=== PATIENT | female | born 1960 | race Caucasian/White ===

== ENCOUNTER 2024-03-10 14:03 | Outpatient (AMB) | payer MEDICARE, MEDICAID, SELFPAY ==
--- NOTE | 2024-03-10 14:14 | A.OFFPC_ITS ---
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: No Allergies latex Allergy (Severe, Verified 03/10/24 14:16) Anaphylaxis cefadroxil [From Duricef] Allergy (Unknown, Verified 03/10/24 14:15) Rash Cephalosporins Allergy (Unknown, Verified 03/10/24 14:16) Unknown Penicillins Allergy (Unknown, Verified 03/10/24 14:16) Rash Medication List - Last Reconciled 03/10/24 by Sury Gallego MD cholecalciferol (vitamin D3) 25 mcg PO DAILY clonidine HCl mg PO fluoxetine 20 mg PO DAILY fluticasone propionate 50 mcg/actuation sprays intranasal ipratropium bromide intranasal lisinopril mg PO morphine 15 mg PO QID PRN pantoprazole 40 mg PO DAILY prednisone mg PO prednisone mg PO rosuvastatin 5 mg PO DAILY valacyclovir 1,000 mg PO BID vit B davs-taevf-amrilky-inosi 400 mcg-20 mg- 50 mg (Super B-50 Complex) caps PO Tobacco use date assessed: 03/10/24 Dental Screening Dental Screen Date: 03/10/24 Did you have a dental visit in the last 12 months?: Yes Did you have a dental problem in the last 6 months where you did not have access to dental care?: No Was dental information given to patient?: Patient has dentist HPI HPI Comments History of Present Illness Details The patient is a 63 year old female with a past medical history of lupus, arthritis, neck pain, hypertension, hyperlipidemia presenting for follow up Chronic pain-SLE, OA, h/o scolioisis. On chronic morphine for pain management, valium as needed. Previously on plaquenil-intolerant of SE. Saw rheumatology Was tapering down prednisone in November. Depression/anxiety-on prozac 10mg. history of IBS. continues loperamide. CV-on lisionpril, crestor. No chest pain or shortness of breath Colonoscopy 06/23/2019-Dr Arriaza-10 year repeat recommended Mammo 12/02/2022 s/p hysterectomy [facility] Medical History (Updated 03/14/24 @ 11:35 by Sury Gallego MD) Cataract Carpal tunnel syndrome on right Headache Depression Anxiety IBS (irritable bowel syndrome) Hypercholesteremia Sinusitis Asthma Surgical History (Updated 03/10/24 @ 16:51 by Brianne Toro CMA) History of tonsillectomy H/O tubal ligation History of hysterectomy Family History (Updated 03/10/24 @ 16:50 by Brianne Toro CMA) Mother HTN (hypertension) Hypercholesteremia Diabetes Clogged artery (heart) Breast cancer Father Hypercholesteremia Diabetes Clogged artery (heart) Prostate cancer Maternal Grandmother Diabetes Paternal Grandfather Lung cancer Stomach cancer Brother Clogged artery (heart) Social History Housing: House Patient Tobacco Use Status: Never used Tobacco e-Cigarette/Vaping Use: Never Used Second Hand Smoke Exposure: No service: No Current occupational status: employed and retired Cognitive needs: No Hearing needs: No Vision needs: No Questionnaire PHQ-9 Over the last 2 weeks, how often have you been bothered by any of the following problems? 1. Little interest or pleasure in doing things: not at all 2. Feeling down, depressed, or hopeless: not at all 3. Trouble falling or staying asleep, or sleeping too much: more than half the days 4. Feeling tired or having little energy: several days 5. Poor appetite or overeating: not at all 6. Feeling bad about yourself - or that you are a failure or have let yourself or your family down: not at all 7. Trouble concentrating on things, such as reading the newspaper or watching television: not at all 8. Moving or speaking so slowly that other people could have noticed. Or the opposite - being so fidgety or restless that you have been moving around a lot more than usual: not at all 9. Thoughts that you would be better off or of hurting yourself in some way: not at all Total score: 3 Depression Screening Interpretation: Positive Depression Screening Follow-up: Declines treatment Depression Screening Done: Yes 54423 - PHQ-9 Billing: Yes Source: Developed by Drs. Noé Freeman, Ave Carson, Huang Leyva and colleagues, with an educational yin from [employer] ([place] Thrive Questionnaire Date Thrive assessed: 03/10/24 I am a: Patient What is your living situation today?: I have a steady place to live Within the past 12 months, did the food you bought not last and you didn't have the money to get more?: Never true Within the past 12 months, did you worry whether your food would run out before you got money to buy more?: Never true Do you have trouble paying for medicines?: No Do you have trouble getting transportation to medical appointments?: No Do you have trouble paying your heating and electricity bill?: No Do you have trouble taking care of your child, family member or friend?: No Do you have trouble with day-to-day activities such as bathing, preparing meals, shopping, managing finances, etc.?: No Are you currently unemployed and looking for a job?: No Are you interested in more education?: No Please select the resources that you would like help with: None Currently or been in a relationship where the following occur: no concerns reported THRIVE Score: 0 AUDIT C Alcohol Use Questionnaire (AUDIT-C) 1. How often do you have a drink containing alcohol?: Never 3. How often do you have six or more drinks on one occasion?: Never Total Score: 0 TORRIE-7 AMB Questionnaire TORRIE-7 Date TORRIE - 7 assessed: 03/10/24 Feeling nervous, anxious, or on edge: 0 = Not at all Not being able to stop or control worryin = Not at all Worrying too much about different things: 0 = Not at all Trouble relaxin = Not at all Being so restless that it is hard to sit still: 0 = Not at all Becoming easily annoyed or irritable: 1 = Several days Feeling afraid as if something awful might happen: 0 = Not at all Total TORRIE-7 score (0-4 normal; 5-9 mild; 10-14 moderate; 15-21 severe): 1 Source: Developed by Drs. Noé Freeman, Ave Carson, Huang Leyva and colleagues, with an educational yin from [employer] ([place] TORRIE-7 Assessment Billing TORRIE-7 Assessment Tool: TORRIE-7 Assessment 54286 ACT Questionnaire In the past 4 weeks, how much of the time did your asthma keep you from getting as much done at work, school or at home?: Some of the time During the past 4 weeks, how often have you had shortness of breath?: 3-6 times a week During the past 4 weeks, how often did your asthma symptoms wake you up at night or earlier than usual in the morning?: 2-3 nights a week During the past 4 weeks, how often have you had to use your rescue inhaler or nebulizer medication?: 2-3 times a week How would you rate your asthma control during the past 4 weeks?: Somewhat controlled ACT Interpretation: Positive Score: 14 Review of Systems Const Details: ROS CONSTITUTIONAL: Denies weight loss, fever and chills. HEENT: Denies changes in vision and hearing. RESPIRATORY: see HPI CV: Denies palpitations and CP GI: Denies abdominal pain, nausea, vomiting and diarrhea. : Denies dysuria and urinary frequency. MSK: Denies new myalgia and joint pain. SKIN: Denies rash and pruritus. NEUROLOGICAL: Denies headache PSYCHIATRIC: Denies recent changes in mood. Physical exam (Primary Care) Vital Signs: Last Vital Signs Temp 98.1 F 03/10/24 14:29 Pulse 75 03/10/24 14:29 Resp 16 03/10/24 14:29 BP 116/76 03/10/24 14:29 Pulse Ox 97 03/10/24 14:29 Oxygen Delivery Method Room Air 03/10/24 14:29 PHYSICAL EXAM: GENERAL: Alert and oriented x 3. NAD EYES: EOMI. Anicteric. HENT: Moist mucous membranes. LUNGS: Clear to auscultation bilaterally. CARDIOVASCULAR: Regular rate and rhythm. ABDOMEN: Soft, non-tender +bs EXTREMITIES: No edema. Non-tender. SKIN: No rashes or lesions. Warm. NEUROLOGIC: No focal neurological deficits. CN II-XII grossly intact PSYCHIATRIC: Cooperative. Appropriate mood and affect BMI result Body Mass Index 38.2 Tobacco/Smoking Status: Tobacco use Status Tobacco use date assessed 03/10/24 03/10/24 14:18 Patient Tobacco Use Status Never used Tobacco 03/10/24 14:18 e-Cigarette/Vaping Use Never Used 03/10/24 14:18 PHQ-9: PHQ-9 Score PHQ-9: Total score 3 03/10/24 16:52 Depression Screening Interpretation: Positive Depression Screening Follow-up: Declines treatment Thrive Assessment: Date of Thrive Assessment Date Thrive assessed 03/10/24 03/10/24 16:52 Currently or been in a relationship where the following occur: no concerns reported Const Other: PHYSICAL EXAM: GENERAL: Alert and oriented x 3. NAD EYES: EOMI. Anicteric. HENT: Moist mucous membranes. No scleral icterus. No cervical lymphadenopathy. LUNGS: Clear to auscultation bilaterally. CARDIOVASCULAR: Regular rate and rhythm. No murmur. No JVD. ABDOMEN: Soft, non-tender +bs EXTREMITIES: No edema. Non-tender. SKIN: No rashes or lesions. Warm. NEUROLOGIC: No focal neurological deficits. CN II-XII grossly intact PSYCHIATRIC: Cooperative. Appropriate mood and affect Assessment and Plan Assessment & Plan (1) SLE (systemic lupus erythematosus related syndrome): Comment: continue f/up rheumatology. Having great difficulty weaning prednisone btw pain and breathing Code(s): M32.9 - Systemic lupus erythematosus, unspecified (2) Polyarthralgia: Code(s): M25.50 - Pain in unspecified joint (3) Congenital scoliosis: Code(s): Q67.5 - Congenital deformity of spine (4) Hypertension: Code(s): I10 - Essential (primary) hypertension Qualifiers: Hypertension type: primary hypertension Qualified Code(s): I10 - Essential (primary) hypertension (5) Dyslipidemia: Code(s): E78.5 - Hyperlipidemia, unspecified (6) Prediabetes: Code(s): R73.03 - Prediabetes Medications: New allopurinol 300 mg PO DAILY 90 tabs 3RF 90 days lisinopril 20 mg PO DAILY 90 tabs 3RF 90 days Coding Level of Care Code Tele Est Pt Level 4 (11606) Complex EM visit Add On G2211 Diagnoses SLE (systemic lupus erythematosus related syndrome) M32.9 Polyarthralgia M25.50 Congenital scoliosis Q67.5 Primary hypertension I10 Hypertension type: primary hypertension Dyslipidemia E78.5 Prediabetes R73.03 Additional Codes TORRIE-7 Assessment Billing - TORRIE-7 Assessment Tool: TORRIE-7 Assessment [id number] ([id number])
[2024-03-10 14:29] VITALS: BP 116/76; PULSE 75; RESP 16; TEMP 36.7; O2SAT 97; BMI 38.2
== END 2024-03-10 15:07 | disposition home or self-care (01) ==
PROVIDERS: PCP Internal Medicine; Visit Provider Internal Medicine
DX: M32.9 Systemic lupus erythematosus, unspecified (principal); M25.50 Pain in unspecified joint; Q67.5 Congenital deformity of spine; I10 Essential (primary) hypertension; E78.5 Hyperlipidemia, unspecified; R73.03 Prediabetes
CPT/HCPCS: 99214; G2211

== ENCOUNTER 2024-05-14 13:01 | Outpatient (REF) | payer MEDICARE, MEDICAID, SELFPAY ==
[2024-05-14 14:16] LABS: D Dimer High Sensitivity < 150 NG/ML
[2024-05-14 20:22] LABS: Anion Gap 18 (12-20); Blood Urea Nitrogen 9 mg/dL (9-16); Calcium 9.7 mg/dL (8.4-10.2); Carbon Dioxide 21 mmol/L (22-29); Chloride 106 mmol/L (96-108); Estimated Glomerular Filt Rate > 60; Glucose Random 132 mg/dL (60-115); Potassium 3.9 mmol/L (3.3-5.1); Sodium 141 mmol/L (135-145)
== END 2024-05-14 13:02 | disposition home or self-care (01) ==
LOC: HO.WFDLDS 13:01
PROVIDERS: Visit Provider Internal Medicine
DX: M79.604 Pain in right leg (principal); M79.605 Pain in left leg
CPT/HCPCS: 36415; 80048; 85379

== ENCOUNTER 2024-09-20 11:25 | Outpatient (AMB) | payer MEDICARE, MEDICAID, SELFPAY ==
--- NOTE | 2024-09-20 11:32 | MHC.PC.OV ---
Vital Signs 09/20/24 11:41 Height 5 ft 3.5 in Weight 218 lb BMI 38.0 BP 128/68 Blood Pressure Location Rt brachial Position Sitting Pulse 70 Pulse Source Pulse Oximeter Pulse Oximetry (%) 97 Oxygen Delivery Method Room Air Intake Visit Reasons: cpe Intake Note: Physical. Needs order for ultrasound mammogram 6 month follow up. 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 On chronic morphine for pain management, valium as needed. Previously on plaquenil-intolerant of SE. Sees rheumatology Depression/anxiety-on prozac 20mg. history of IBS. continues loperamide. CV-on lisionpril, crestor. Ongoing issues with shortness of breath. Has had cardiac w/up, sees pulmonary. Has been more wheezy and congested for the last week. Colonoscopy 06/23/2019-Dr Arriaza-10 year repeat recommended Mammo -[facility]. needs 6 months u/s s/p hysterectomy ROS see HPI PHYSICAL EXAM: GENERAL: Alert and oriented x 3. NAD EYES: EOMI. Anicteric. HENT: Moist mucous membranes. No scleral icterus. No cervical lymphadenopathy. LUNGS: scattered rhonci CARDIOVASCULAR: Regular rate and rhythm. No murmur. No JVD. ABDOMEN: Soft, non-tender +bs EXTREMITIES: No edema. Non-tender. SKIN: No rashes or lesions. Warm. NEUROLOGIC: No focal neurological deficits. CN II-XII grossly intact PSYCHIATRIC: Cooperative. Appropriate mood and affect [facility] Medical History (Updated 10/04/24 @ 01:25 by Sury Gallego MD) Cataract Carpal tunnel syndrome on right Headache Depression Anxiety IBS (irritable bowel syndrome) Hypercholesteremia Sinusitis Asthma Surgical History History of tonsillectomy H/O tubal ligation History of hysterectomy Family History Mother HTN (hypertension) Hypercholesteremia Diabetes Clogged artery (heart) Breast cancer Father Hypercholesteremia Diabetes Clogged artery (heart) Prostate cancer Maternal Grandmother Diabetes Paternal Grandfather Lung cancer Stomach cancer Brother Clogged artery (heart) Social History (Updated 09/20/24 @ 11:47 by Brianne Toro CMA) Housing: House Patient Tobacco Use Status: Never used Tobacco e-Cigarette/Vaping Use: Never Used service: No Current occupational status: employed and retired Cognitive needs: No Hearing needs: No Vision needs: No Questionnaire PHQ-9 Over the last 2 weeks, how often have you been bothered by any of the following problems? 1. Little interest or pleasure in doing things: not at all 2. Feeling down, depressed, or hopeless: not at all 3. Trouble falling or staying asleep, or sleeping too much: several days 4. Feeling tired or having little energy: several days 5. Poor appetite or overeating: not at all 6. Feeling bad about yourself - or that you are a failure or have let yourself or your family down: not at all 7. Trouble concentrating on things, such as reading the newspaper or watching television: not at all 8. Moving or speaking so slowly that other people could have noticed. Or the opposite - being so fidgety or restless that you have been moving around a lot more than usual: not at all 9. Thoughts that you would be better off or of hurting yourself in some way: not at all Total score: 2 Depression Screening Interpretation: Negative Depression Screening Done: Yes 38461 - PHQ-9 Billing: Yes Source: Developed by Drs. Noé Freeman, Ave Carson, Huang Leyva and colleagues, with an educational yin from [employer]. Thrive Questionnaire Date Thrive assessed: 09/08/24 I am a: Patient What is your living situation today?: I have a steady place to live Within the past 12 months, did the food you bought not last and you didn't have the money to get more?: Never true Within the past 12 months, did you worry whether your food would run out before you got money to buy more?: Never true Do you have trouble paying for medicines?: No Do you have trouble getting transportation to medical appointments?: No Do you have trouble paying your heating and electricity bill?: No Do you have trouble taking care of your child, family member or friend?: No Do you have trouble with day-to-day activities such as bathing, preparing meals, shopping, managing finances, etc.?: No Are you currently unemployed and looking for a job?: No Are you interested in more education?: No Please select the resources that you would like help with: None Currently or been in a relationship where the following occur: No concerns reported THRIVE Score: 0 AUDIT C Alcohol Use Questionnaire (AUDIT-C) 3. How often do you have six or more drinks on one occasion?: Never Total Score: 0 TORRIE-7 AMB Questionnaire TORRIE-7 Date TORRIE - 7 assessed: 03/10/24 Worrying too much about different things: 0 = Not at all Source: Developed by Drs. Noé Freeman, Ave Carson, Huang Leyva and colleagues, with an educational yin from [employer]. Physical exam (Primary Care) Vital Signs: Last Vital Signs Pulse 70 09/20/24 11:41 BP 128/68 09/20/24 11:41 Pulse Ox 97 09/20/24 11:41 Oxygen Delivery Method Room Air 09/20/24 11:41 BMI result Body Mass Index 38.0 Tobacco/Smoking Status: Tobacco use Status Tobacco use date assessed 09/20/24 09/20/24 11:48 Patient Tobacco Use Status Never used Tobacco 09/20/24 11:47 e-Cigarette/Vaping Use Never Used 09/20/24 11:47 PHQ-9: PHQ-9 Score PHQ-9: Total score 2 10/04/24 01:27 Depression Screening Interpretation: Negative Thrive Assessment: Date of Thrive Assessment Date Thrive assessed 09/08/24 09/20/24 11:38 Currently or been in a relationship where the following occur: No concerns reported Coding Level of Care Code Est Pt Level 4 (56165) Diagnoses Physical exam Z00.00 SLE (systemic lupus erythematosus related syndrome) M32.9 Additional Codes PHQ-9 - 47226 - PHQ-9 Billing: Yes ([id number]) Assessment & Plan Assessment & Plan (1) Physical exam: Code(s): Z00.00 - Encounter for general adult medical examination without abnormal findings Category: Medical Plan: Preventive measures for age discussed. (2) SLE (systemic lupus erythematosus related syndrome): Comment: continue f/up rheumatology. Having great difficulty weaning prednisone btw pain and breathing Code(s): M32.9 - Systemic lupus erythematosus, unspecified Category: Medical Plan: see above Plan asthma exacerbation/sinusitis-increased prednisone short term. Doxycycline sent Orders: Orders Hemoglobin A1c 09/20/24 R73.03 - Prediabetes, I10 - Essential (primary) hypertension, E78.5 - Hyperlipidemia, unspecified Lipid Panel 09/20/24 R73.03 - Prediabetes, I10 - Essential (primary) hypertension, E78.5 - Hyperlipidemia, unspecified TSH reflex Free T4 09/20/24 R73.03 - Prediabetes, I10 - Essential (primary) hypertension, E78.5 - Hyperlipidemia, unspecified Comprehensive Met. Panel 09/20/24 E11.9 - Type 2 diabetes mellitus without complications Complete Blood Count Auto Diff 09/20/24 R73.03 - Prediabetes, I10 - Essential (primary) hypertension, E78.5 - Hyperlipidemia, unspecified PT Evaluation and Treatment 09/20/24 M54.2 - Cervicalgia, M54.9 - Dorsalgia, unspecified, G89.29 - Other chronic pain Medications: New doxycycline monohydrate 100 mg PO BID 20 tabs 0RF Mounjaro (tirzepatide) for 4 weeks 2.5 mg (0.5 mL) subcut QWEEK 2 mL 0RF NS E11.9 - Type 2 diabetes mellitus without complications Mounjaro (tirzepatide) for 4 weeks 2.5 mg (0.5 mL) subcut QWEEK 2 mL 0RF NS E11.9 - Type 2 diabetes mellitus without complications propranolol 10 mg PO BID PRN 60 tabs 3RF hot flashes, anxiety Discontinued clonidine HCl Discontinued Reason: Doctor's Order 0.1 mg PO BID 90 tabs 3RF
[2024-09-20 11:41] VITALS: BP 128/68; PULSE 70; O2SAT 97; BMI 38.0
== END 2024-09-20 12:34 | disposition home or self-care (01) ==
PROVIDERS: PCP Internal Medicine; Visit Provider Internal Medicine
DX: Z00.00 Encounter for general adult medical examination without abnormal findings (principal); M32.9 Systemic lupus erythematosus, unspecified

== ENCOUNTER → 2024-09-20 11:25 | Outpatient (BNVA) | payer MEDICARE, MEDICAID, SELFPAY | PROVIDERS: PCP Internal Medicine; Visit Provider Internal Medicine | DX: M32.9 Systemic lupus erythematosus, unspecified (principal); M19.90 Unspecified osteoarthritis, unspecified site; M41.9 Scoliosis, unspecified; F41.8 Other specified anxiety disorders; E78.5 Hyperlipidemia, unspecified; R73.03 Prediabetes; I10 Essential (primary) hypertension; G89.29 Other chronic pain; M54.2 Cervicalgia; M54.9 Dorsalgia, unspecified; Z79.891 Long term (current) use of opiate analgesic; Z79.899 Other long term (current) drug therapy | CPT/HCPCS: 36415; 80053; 80061; 83036; 84443; 85025; 96127; 99212 ==

== ENCOUNTER 2024-09-20 12:37 | Outpatient (REF) | payer MEDICARE, MEDICAID, SELFPAY ==
[2024-09-20 14:23] LABS: MANUAL DIFF FLAG NO
[2024-09-20 14:31] LABS: Basophils Absolute Auto 0.1 X10*3/uL (0.0-0.2); Basophils Percent Auto 0.6 % (0-2); Eosinophils Absolute Auto 0.1 X10*3/uL (0.0-0.4); Eosinophils Percent Auto 0.6 % (0-4); Hematocrit 39.9 % (37.0-47.0); Hemoglobin 13.4 g/dl (12.0-16.0); Imm Gran Abs Auto 0.11 X10*3/uL (0.00-0.03); Lymphocytes Absolute Auto 1.4 X10*3/uL (1.2-4.9); Lymphocytes Percent Auto 12.9 % (20-40); Mean Corpuscular HGB Conc 33.6 g/dl (31.0-35.0); Mean Corpuscular Hemoglobin 29.3 pg (27.0-33.0); Mean Corpuscular Volume 87.1 fL (80.0-98.0); Mean Platelet Volume 12.2 fL (9.4-12.3); Monocytes Absolute Auto 0.8 X10*3/uL (0.1-1.2); Monocytes Percent Auto 6.9 % (2-11); Neutrophils Absolute Auto 8.6 x10*3/uL (2.0-8.3); Platelet Count 236 X10*3/uL (160-400); Red Blood Count 4.58 X10*6/uL (4.20-5.50); Red Cell Distribution Width 13.9 % (11.0-16.0); White Blood Count 11.1 X10*3/uL (4.8-10.8)
[2024-09-20 14:42] LABS: Estimated Average Glucose 126 mg/dL; Hemoglobin A1C 147.1893 umol/L
[2024-09-20 14:54] LABS: Alanine Aminotransferase 60 U/L (0-31); Albumin Level 4.3 g/dL (3.5-5.0); Anion Gap 16 (12-20); Aspartate Amino Transferase 51 U/L (5-31); Bilirubin Total 0.5 mg/dL (0.0-1.0); Blood Urea Nitrogen 9 mg/dL (9-16); Carbon Dioxide 23 mmol/L (22-29); Chloride 104 mmol/L (96-108); Cholesterol 343 mg/dL (<200); Estimated Glomerular Filt Rate > 60; Glucose Random 120 mg/dL (60-115); HDL Cholesterol 52 mg/dL (>40); Potassium 3.4 mmol/L (3.3-5.1); Sodium 140 mmol/L (135-145); Total Protein 6.9 g/dL (6.5-8.0); Triglycerides 516 mg/dL (<150)
[2024-09-20 15:04] LABS: Alkaline Phosphatase 47 U/L (39-117)
[2024-09-20 15:16] LABS: TSH reflex Free T4 1.74 uIU/mL (0.32-4.0)
== END 2024-09-20 12:38 | disposition home or self-care (01) ==
LOC: HO.WFDLDS 12:37
PROVIDERS: Visit Provider Internal Medicine
DX: Z13.89 Encounter for screening for other disorder (principal)
CPT/HCPCS: 36415; 80053; 80061; 83036; 84443; 85025

== ENCOUNTER 2024-11-23 11:35 | Outpatient (AMB) | payer MEDICARE, MEDICAID, SELFPAY ==
--- NOTE | 2024-11-23 11:56 | MHC.PC.OV ---
Vital Signs 11/23/24 12:06 Height 5 ft 3.5 in Weight 201 lb 6 oz BMI 35.1 BP 106/74 Blood Pressure Location Lt brachial Position Sitting Pulse 71 Pulse Source Pulse Oximeter Pulse Oximetry (%) 94 Oxygen Delivery Method Room Air Intake Visit Reasons: f/up 30 min Intake Note: Follow up. Allergies latex Allergy (Severe, Verified 11/23/24 11:56) Anaphylaxis cefadroxil [From Duricef] Allergy (Unknown, Verified 11/23/24 11:56) Rash Cephalosporins Allergy (Unknown, Verified 11/23/24 11:56) Unknown Penicillins Allergy (Unknown, Verified 11/23/24 11:56) Rash Tobacco use date assessed: 09/20/24 Dental Screening Dental Screen Date: 03/10/24 HPI HPI Comments History of Present Illness Details The patient is a 64 year old female with a past medical history of lupus, arthritis, neck pain, hypertension, hyperlipidemia presenting for follow up Chronic pain-SLE, OA, h/o scolioisis. On chronic morphine for pain management, valium as needed. Previously on plaquenil-intolerant of SE. Sees rheumatology Depression/anxiety-on prozac 20mg. history of IBS. continues loperamide. CV-on lisionpril, crestor. Ongoing issues with shortness of breath. Has had cardiac w/up, sees pulmonary. Sees cardiology in December. Recent echo with EF 35%. Start on entresto today . Denies LE edema Colonoscopy 06/23/2019-Dr Arriaza-10 year repeat recommended Mammo -[facility]. needs 6 months u/s s/p hysterectomy ROS see HPI PHYSICAL EXAM: GENERAL: Alert and oriented x 3. NAD EYES: EOMI. Anicteric. HENT: Moist mucous membranes. No scleral icterus. No cervical lymphadenopathy. LUNGS: scattered rhonci CARDIOVASCULAR: Regular rate and rhythm. No murmur. No JVD. ABDOMEN: Soft, non-tender +bs EXTREMITIES: No edema. Non-tender. SKIN: No rashes or lesions. Warm. NEUROLOGIC: No focal neurological deficits. CN II-XII grossly intact PSYCHIATRIC: Cooperative. Appropriate mood and affect [facility] Medical History (Updated 11/28/24 @ 14:19 by Sury Gallego MD) Cataract Carpal tunnel syndrome on right Headache Depression Anxiety IBS (irritable bowel syndrome) Hypercholesteremia Sinusitis Asthma Surgical History History of tonsillectomy H/O tubal ligation History of hysterectomy Family History Mother HTN (hypertension) Hypercholesteremia Diabetes Clogged artery (heart) Breast cancer Father Hypercholesteremia Diabetes Clogged artery (heart) Prostate cancer Maternal Grandmother Diabetes Paternal Grandfather Lung cancer Stomach cancer Brother Clogged artery (heart) Social History (Updated 09/20/24 @ 11:47 by Brianne Toro CMA) Housing: House Patient Tobacco Use Status: Never used Tobacco e-Cigarette/Vaping Use: Never Used service: No Current occupational status: employed and retired Cognitive needs: No Hearing needs: No Vision needs: No Questionnaire PHQ-9 Over the last 2 weeks, how often have you been bothered by any of the following problems? 1. Little interest or pleasure in doing things: not at all 2. Feeling down, depressed, or hopeless: not at all 3. Trouble falling or staying asleep, or sleeping too much: several days 4. Feeling tired or having little energy: several days 5. Poor appetite or overeating: not at all 6. Feeling bad about yourself - or that you are a failure or have let yourself or your family down: not at all 7. Trouble concentrating on things, such as reading the newspaper or watching television: not at all 8. Moving or speaking so slowly that other people could have noticed. Or the opposite - being so fidgety or restless that you have been moving around a lot more than usual: not at all 9. Thoughts that you would be better off or of hurting yourself in some way: not at all Total score: 2 Depression Screening Interpretation: Negative Depression Screening Done: Yes 04610 - PHQ-9 Billing: Yes Source: Developed by Drs. Noé Freeman, Ave Carson, Huang Leyva and colleagues, with an educational yin from [employer]. Thrive Questionnaire Date Thrive assessed: 11/08/24 I am a: Patient What is your living situation today?: I have a steady place to live Within the past 12 months, did the food you bought not last and you didn't have the money to get more?: Never true Within the past 12 months, did you worry whether your food would run out before you got money to buy more?: Never true Do you have trouble paying for medicines?: No Do you have trouble getting transportation to medical appointments?: No Do you have trouble paying your heating and electricity bill?: No Do you have trouble taking care of your child, family member or friend?: No Do you have trouble with day-to-day activities such as bathing, preparing meals, shopping, managing finances, etc.?: No Are you currently unemployed and looking for a job?: No Are you interested in more education?: No Please select the resources that you would like help with: None Currently or been in a relationship where the following occur: No concerns reported THRIVE Score: 0 TORRIE-7 AMB Questionnaire TORRIE-7 Date TORRIE - 7 assessed: 03/10/24 Source: Developed by Drs. Noé Freeman, Ave Carson, Huang Leyva and colleagues, with an educational yin from [employer]. Physical exam (Primary Care) Vital Signs: Last Vital Signs Pulse 71 11/23/24 12:06 BP 106/74 11/23/24 12:06 Pulse Ox 94 11/23/24 12:06 Oxygen Delivery Method Room Air 11/23/24 12:06 BMI result Body Mass Index 35.1 Tobacco/Smoking Status: Tobacco use Status Tobacco use date assessed 09/20/24 11/23/24 11:57 Patient Tobacco Use Status Never used Tobacco 11/23/24 11:57 e-Cigarette/Vaping Use Never Used 11/23/24 11:57 PHQ-9: PHQ-9 Score PHQ-9: Total score 2 11/23/24 12:07 Depression Screening Interpretation: Negative Thrive Assessment: Date of Thrive Assessment Date Thrive assessed 11/08/24 11/23/24 11:57 Currently or been in a relationship where the following occur: No concerns reported Coding Level of Care Code Est Pt Level 4 (80794) Diagnoses Chronic systolic congestive heart failure I50.22 Heart failure type: systolic Heart failure chronicity: chronic Additional Codes PHQ-9 - 88255 - PHQ-9 Billing: Yes ([id number]) Assessment & Plan Assessment & Plan (1) CHF (congestive heart failure): Code(s): I50.9 - Heart failure, unspecified Category: Medical Qualifiers: Heart failure type: systolic Heart failure chronicity: chronic Qualified Code(s): I50.22 - Chronic systolic (congestive) heart failure Plan: start entresto Cardiology consult pending Medications: New sacubitril-valsartan 24-26 mg 1 tab PO BID 180 tabs 3RF 90 days I50.9 - Heart failure, unspecified Refilled morphine 15 mg PO Q6H PRN 112 tabs 0RF pain 28 days
[2024-11-23 12:06] VITALS: BP 106/74; PULSE 71; O2SAT 94; BMI 35.1
--- OUTSIDE RECORDS SUMMARY | 2024-11-23 12:50 | XMS_ITS | Encounter Summary ---
Author Organization [employer] Address [address] [facility] [address] [place] [address] Care Team Providers Care Dancing Instructor Name Role Phone Unavailable Primary Care Provider Unavailabl e Encounter Details Date Type Department Care Team (Latest Contact Info) Description 04/24/2022 Abstract [facility] CONVERSIONS Dental, Provider, DDS Social History Tobacco Use Types Packs/Day Years Used Date Smoking Tobacco: Never Assessed Comments Unknown Sex and Gender Information Value Date Recorded Sex Assigned at Female 11/22/2022 9:24 AM EST Legal Sex Female 5:35 PM EDT Gender Identity Female 11/22/2022 9:24 AM EST Sexual Orientation Don't know 11/22/2022 9: 24 AM EST documented as of this encounter Plan of Treatment Upcoming Encounters Date Type Department Care Team (Late st Contact Info) Description 08/11/2025 4:00 PM EDT Office Visit [facility] DENTAL [address] [place] [address] Gracia Dangelo documented as of this encounter Visit Diagnoses Not on filedocumented in this encounter
--- OUTSIDE RECORDS SUMMARY | 2024-11-23 12:51 | XMS_ITS | Clinical Summary ---
Author Organization [employer] Address [address] [facility] [address] [place] [address] Care Team Providers Care Mitering Machine Operator Name Role Phone Unavailable Primary Care Provider Unavailabl e Allergies Active Allergy Reactions Criticality Noted Date Comments Latex Anaphylaxis High 11/25/2022 Penicillins Rash Low 11/25/2022 Sulfa Antibiotics Rash Low 11/25/2022 Medications predniSONE (Deltasone) 5 MG tablet 08/01/2024 Active Social History Tobacco Use Types Packs/Day Years Used Date Smoking Tobacco: Never Smokeless Tobacco: Never Tobacco Cessation:Counseling Given: Not Answered Alcohol Use Standard Drinks/Week Comments Never 0 (1 standard drink = 0.6 oz pur e alcohol) Comments Unknown Sex and Gender Information Value Date Recorded Sex Assigned at Female 11/22/2022 9:24 AM EST Legal Sex Female 5:35 PM EDT Gender Identity Female 11/22/2022 9:24 AM EST Sexual Orientation Don't know 11/22/2022 9: 24 AM EST Plan of Treatment Upcoming Encounters Date Type Department Care Team (Late st Contact Info) Description 08/11/2025 4:00 PM EDT Office Visit [facility] DENTAL [address] [place] [id number] Gracia Dangelo Health Maintenance Due Date Last Done Comments CT Colonography 1961 Colonoscopy 1961 Colorectal Cancer Screening 1961 Depression Screening 1961 FIT DNA/Cologuard 1961 FIT 1961 FOBT 1961 HIV Screening 1961 Lipid Panel 1961 SDOH Screening 1961 Sigmoidoscopy 1961 Alcohol/Substance Use Screening 1973 Hepatitis C Screening 1979 Pap Smear 1982 Cervical Cancer Screening 1991 HPV/Cotest 1991 Mammogram 2001 Zoster Vaccines (1 of 2) 2011 Pneumococcal Vaccine: Pediatrics (0 to 5 Years) and At-Risk Patients (6 to 64 Years) (2 of 2 - PPSV23 or PCV20) 12/01/2020 10/06/2020 RSV Patients and Patients Aged 60 years or older (1 - Risk 60-74 years 1-dose series) 2021 Dental X-Ray: Bitewings 04/25/2023 04/24/20 22, 10/10/2016, 2015 COVID-19 Vaccine ( season) 2024 09/20/2022, 01/08/2022, 02/27/2021, Additional history exists Dental Oral Exam 02/18/2025 08/19/2024, , 04/24/2022, Additional history exists Dental Prophylaxis 02/18/2025 08/19/2024, 0 01/08/2024, 11/25/2022, Additional history exists Dental X-Ray: Full Mouth 04/25/2025 04/24/2022, 07/27 Tobacco Screening 08/19/2025 08/19/2024 DTaP/Tdap/Td Vaccines (2 - Td or Tdap) 07/23/2031 07/23/2021 Influenza Vaccine Completed 08/18/2024, , 10/14/2023, Additional history exists HIB Vaccines Aged Out No longer eligi ble based on patient's age to complete this topic HPV Vaccines Aged Out No longer eligi ble based on patient's age to complete this topic Hepatitis A Vaccines Aged Out No long er eligible based on patient's age to complete this topic Hepatitis B Vaccines Aged Out No long er eligible based on patient's age to complete this topic IPV Vaccines Aged Out No longer eligi ble based on patient's age to complete this topic Meningococcal Vaccine Aged Out No yessenia jeronimo eligible based on patient's age to complete this topic RSV under 20 months Aged Out No longe r eligible based on patient's age to complete this topic Rotavirus Vaccines Aged Out No longer eligible based on patient's age to complete this topic Procedures Procedure Name Priority Date/Time Associated Diagnosis Comments Full PROPHYLAXIS - ADULT Routine 024 12:00 PM EDT PERIODIC ORAL EVALUATION - ESTABLISHED PATIENT Routine 08/19/2024 12:00 PM EDT DIAGNOSTIC - DIAGNOSTIC IMAGING - INTRAORAL - COMPREHENSIVE SERIES OF RADIOGRAPHIC IMAGES Routine 04/24/2022 12:00 AM EDT from Last 3 Months or Most Recently Relevant to Health Maintenance Insurance [facility] MEDICAID STAND ADULT
--- OUTSIDE RECORDS SUMMARY | 2024-11-23 12:51 | XMS_ITS | Data Portability ---
Author Organization [facility], Allergy Address [address] [place] [address] Care Team Providers Care Leather Drier Name Role Phone GENIE KLEIN Primary Care Provider Assessment Encounter Date Assessment Date Assessment LastModified by Organization Details LastModified Time 09/03/2024 09/03/2024 64-year-old female with a longstanding history of lupus, new diagnosis of PMR on prednisone, allergies, reflux, untreated JYOTHI, presents today for exertional dyspnea and chronic cough with normal pulmonary function testing. Flexible laryngoscopy is unremarkable. Specifically there is no evidence of PV FM. I discussed that untreated sleep apnea can worsen reflux and this all can contribute to the feelings of throat tightness. I am hopeful that when she starts CPAP some of this will improve. Less likely but also in the differential is lisinopril contributing to her symptoms. Follow-up for any new or worsening symptoms. [email or web address] Not available 09/10/2024 06:27:40 Plan of Treatment Reminders Order Date Submit Date Provider Last Modified By Organization Details Last Modified Time Details Appointments None record ed. Lab None record ed. Referral None record ed. Procedures None record ed. Surgeries None record ed. Imaging None record ed. Medication Orders None record ed. Patient TargetsNo targets recorded. Patient InstructionsNo instructions recorded. Reason for Referral None Reported. Problems Name Problem SNOMED Code Status Onset Date Resolution Date Notes Provider Name and Address Organization Details Recorded Time Chronic hoarseness 5272079709116 Active 2023 DINESH FRENCH MD [address], [address] [place] - [facility] 12:02:52 Gastroesoph ageal reflux disease without esophagitis 086944105 Active 2023 DINESH FRENCH MD [address] [address], [place], [address], [facility] 12:02:57 Obstructive sleep apnea syndrome 05355925 Active 2023 DINESH FRENCH MD 100 [facility] [address], [place], [address], [facility] 12:03:01 Problem Notes None recorded. Procedures Surgical History Date Name Laterality Status Provider Name and Address Organization Details Recorded Time 09/03/20 24 Fiberoptic Laryngoscopy (Comprehensive) completed DINESH FRENCH MD 100 [facility] [address], [place], [address], [facility] 09/10/2024 06:26:10 Imaging Results None recorded. Procedure Notes None recorded. Medical Equipment None Reported. Allergies No known drug allergies Medications Name Sig Start Date Stop Date Status Note LastModified by Organization Details LastModified Time clonidine HCl 0.1 mg tablet active Not Available Not Availabl e Not Available azithromycin 250 mg tablet 2023 completed Not Available Not Available Not Available valacyclovir 1 gram tablet active Not Available Not Available Not Available lisinopril 20 mg tablet active Not Available Not Available No t Available prednisone 20 mg tablet 2023 completed Not Available Not Available Not Available prednisone 5 mg tablet active Not Available Not Available No t Available ketorolac 0.5 % eye drops 2023 completed Not Available Not Available Not Available prednisone 1 mg tablet active Not Available Not Available No t Available pantoprazole 40 mg tablet,delayed release active Not Available Not Available Not Available lisinopril 10 mg tablet 2023 completed Not Available Not Available Not Available allopurinol 300 mg tablet active Not Available Not Availabl e Not Available ipratropium bromide 42 mcg (0.06 %) nasal spray active Not Available Not Available Not Available morphine 15 mg immediate release tablet active Not Available Not Availab le Not Available fluoxetine 20 mg capsule active Not Available Not Available N ot Available fluticasone propionate 50 mcg/actuation nasal spray,suspensi on active Not Available Not Available Not Available Breo Ellipta 100 mcg-25 mcg/dose powder for inhalation active Not Available Not Available N ot Available Arnuity Ellipta 100 mcg/actuation powder for inhalation 2023 completed Not Available Not Available Not Available Vitals Date Recorded Body height Body mass index (BMI) Body weight Provider Name and Address Organization Details Last Updated DateTime 09/03/2024 165.1 cm 35.8 kg/m2 46176.36 g Soha Hoffman [place] - [facility] 09/03/2024 11:28:44 Social History None recorded. Functional Status None recorded. Mental Status None recorded. Family History Nothing Reported. Medical History Condition Response Allergies/Hayfever Y Hypertension Y Gynecological HistoryNo gynecological history recorded. Obstetrics History GPAL:G 0 P 0 0 0 0 Past Encounters Encounter ID Performer Location Encounter Start Date Encounter Closed Date Diagnosis/Indication Diagnosis SNOMED-CT Code Diagnosis ICD10 Code Diagnosis Note [id number] DINESH FRENCH MD [facility] [address] [address] 09/03/2024 11:08:58 09/03/2024 12:05:31 Chronic hoarseness 6492895644 105 R49.0 Gastroesop hageal reflux disease without esophagitis 809945058 K21.9 Obstructiv e sleep apnea syndrome 48955395 G47.33 Health Concerns Section Related Observation LastModified by Organization Detai ls LastModified Time None Recorded Concern Status LastModified by Organization Details LastModified Time None Recorded Advance Directives Directive None Recorded Payers Encounter Date Sequence Insurance Name Policy Number Policy Lal Covered Member ID Lal Member ID Guarantor Name 09/03/2024 1 [place] [employer] Agueda Leigh [id number] Agueda Leigh 09/03/2024 2 [place] [facility] Agueda E [place] [id number] Agueda Leigh Notes Date Note Type Note Provider Name and Address Organization Details Recorded Time 09/03/2024 text/html 64 yo F with Has chronic cough. Still trouble with breathing especially at night. On inhalers. No choking, some throat tightening, intermittent stridor. Does have allergies, on flonase. Not on zyrtec now. History of lupus, under control. Recent PMR, on prednisone. On lisinopril for years. No dysphagia regularly. No sore throat. Had heart ultrasound. JYOTHI test showed JYOTHI. Not on CPAP yet. Was ordered. DINESH FRENCH MD [address] [place] [address], [place], [address], [place] - [facility] 09/10/2024 06:29:05 OBGyn Episode No OBEpisode recorded.
== END 2024-11-23 12:37 | disposition home or self-care (01) ==
PROVIDERS: PCP Internal Medicine; Visit Provider Internal Medicine
DX: I50.22 Chronic systolic (congestive) heart failure (principal)

== ENCOUNTER → 2024-11-23 11:35 | Outpatient (BNVA) | payer MEDICARE, MEDICAID, SELFPAY | PROVIDERS: PCP Internal Medicine; Visit Provider Internal Medicine | DX: I11.0 Hypertensive heart disease with heart failure (principal); I50.22 Chronic systolic (congestive) heart failure; M32.9 Systemic lupus erythematosus, unspecified; M19.90 Unspecified osteoarthritis, unspecified site; F32.9 Major depressive disorder, single episode, unspecified; F32.A Depression, unspecified; F41.9 Anxiety disorder, unspecified; Z79.891 Long term (current) use of opiate analgesic; Z79.899 Other long term (current) drug therapy | CPT/HCPCS: 96127; 99212 ==

== ENCOUNTER 2025-03-14 13:56 | Outpatient (AMB) | payer MEDICARE, MEDICAID, SELFPAY ==
--- OUTSIDE RECORDS SUMMARY | 2025-03-14 14:00 | XMS_ITS | Data Portability ---
Author Organization [facility] [employer] Address [address] [place] [address] Assessment No assessment recorded. Plan of Treatment Reminders Order Date Submit Date Provider Last Modified By Organization Details Last Modified Time Details Appointments None recorde d. Lab glucose , fingers tick, blood 022 03/15/20 [email or web address] In-Office Order, Internal Use Only DO Not Attach Compendium DO Not Attach Compendium, Do Not Delete/merge, [id number] 11:39:43 Referral None recorde d. Procedures None recorde d. Surgeries None recorde d. Imaging None recorde d. Medication Orders None recorde d. Patient TargetsNo targets recorded. Patient InstructionsNo instructions recorded. Reason for Referral None Reported. Results Created Date Observation Date Name Description Value Unit Range Abnormal Flag Note LastModifiedBy Organization Detail LastModifiedTime 03/15/20 22 03/15/2022 gluco se, finge rstic k, blood Blood Glucose: mg/dl 125 Not Available In-Off ice Order Internal Use Only DO Not Attach Compendium DO Not Attach Compendium, Do Not Delete/merge, [id number] 03/15/2022 11:39:02 Result Notes None recorded. Problems Name Problem SNOMED Code Status Onset Date Resolution Date Notes Provider Name and Address Organization Details Recorded Time Essential hypertensio n 03809386 Active 2021 FREIDA Stokes [address] [place] [address], [address], [facility] [employer] [facility] 11:25:10 Hyperlipide [facility] 10534305 Active 2021 FREIDA Stokes [address] [place] [address], [address], [facility] 2 11:25:18 Insulin resistance 042642557 Active 2021 Tequila Ocampo, [address], [address], [facility] 2 11:25:26 Gout 78600518 Active [address], [address], [facility] 2 11:25:37 Chronic pain 93683997 Active 2021 Tequila Ocampo, [address], [address], [facility] 2 11:25:46 Problem Notes None recorded. Medical Equipment None Reported. Medications Name Sig Start Date Stop Date Status Note LastModified by Organization Details LastModified Time clonidine HCl 0.1 mg tablet TAKE ONE TABLET BY MOUTH TWICE DAILY active Not Available Not Available No t Available loperamide 2 mg capsule TAKE 1 TO 2 CAPSULES BY MOUTH EVERY 4 TO 6 HOURS UP TO 8 CAPS PER 24 HOURS active Not Available Not Available No t Available valacyclovi r 1 gram tablet TAKE 1 TABLET BY MOUTH THREE TIMES DAILY active Not Available Not Available No t Available meclizine 12.5 mg tablet TAKE 1 OR 2 TABLETS BY MOUTH EVERY 6 HOURS FOR DIZZINESS active Not Available Not Available No t Available sulfamethox azole 800 mg-trimetho prim 160 mg tablet TAKE 1 TABLET BY MOUTH TWICE DAILY 03/15 completed Not Available Not Available Not Available lisinopril 10 mg tablet TAKE 1 TABLET BY MOUTH DAILY active Not Available Not Available No t Available fluoxetine 10 mg capsule TAKE ONE CAPSULE BY MOUTH EVERY DAY active Not Available Not Available No t Available allopurinol 300 mg tablet TAKE 1 AND 1/2 TABLETS BY MOUTH EVERY DAY active Not Available Not Available No t Available morphine 15 mg immediate release tablet TAKE 1 TABLET BY MOUTH EVERY 6 HOURS FOR 28 DAYS NEEDED FOR MILD PAIN active Not Available Not Available No t Available diazepam 5 mg tablet TAKE 1 TABLET BY MOUTH THREE TIMES DAILY active Not Available Not Available No t Available Ventolin HFA 90 mcg/actuati on aerosol inhaler DIRECTED INHALE 2 PUFFS BY MOUTH EVERY 6 TO 8 HOURS FOR ASTHMA active Not Available Not Available No t Available rosuvastati n 5 mg tablet TAKE 1 TABLET BY MOUTH EVERY DAY active Not Available Not Available No t Available Vitals None Recorded Social History None recorded. Functional Status None recorded. Mental Status None recorded. Family History Nothing Reported. Medical History No medical history recorded. Gynecological HistoryNo gynecological history recorded. Obstetrics History GPAL:G 0 P 0 0 0 0 Past Encounters Encounter ID Performer Location Encounter Start Date Encounter Closed Date Diagnosis/Indication Diagnosis SNOMED-CT Code Diagnosis ICD10 Code Diagnosis Note [id number] FREIDA Stokes [facility] [address] [facility] [place] [address] 03/15/2022 11:02:46 03/15/2022 11:42:51 Insulin resistance 713961930 E88.81 A1c analyzer not working, fbs 125. Reviewed diet and f/u with PCP. Health Concerns Section Related Observation LastModified by Organization Detai ls LastModified Time None Recorded Concern Status LastModified by Organization Details LastModified Time None Recorded Advance Directives Directive None Recorded Payers Encounter Date Sequence Insurance Name Policy Number Policy Lal Covered Member ID Lal Member ID Guarantor Name 03/15/2022 1 [place] [id number] Agueda Leigh [id number] Agueda Leigh 03/15/2022 2 [place] Agueda Leigh [id number] Agueda Leigh Notes Date Note Type Note Provider Name a nd Address Organization Details Recorded Time 03/15/2022 text/html Pt came to [place] for FBS and A1c after slightly elevated results with her PCP 3 months ago. She has f/u next month. Both parents had Type II DM. FREIDA Stokes [address] [facility], [place], [address], [facility] [employer] 03/15/2022 11:40:01 OBGyn Episode No OBEpisode recorded.
--- OUTSIDE RECORDS SUMMARY | 2025-03-14 14:00 | XMS_ITS | Data Portability ---
Author Organization [place] [facility], Allergy Address [address] [place] [id number] Care Team Providers Care Shift Supervisor Film Processing Name Role Phone GENIE KLEIN Primary Care [...] Address Organization Details Recorded Time Chronic hoarseness [id number] Active 2023 DINESH FRENCH MD [address], [address] [place] [facility] 12:02:52 Gastroesoph ageal reflux disease without esophagitis 787681849 Active 2023 DINESH FRENCH MD [address] [address], [place], [address], [facility] 12:02:57 Obstructive sleep apnea syndrome 53084740 Active 2023 DINESH FRENCH MD 100 [facility] 100, [place], [address], [facility] 12:03:01 Problem Notes None recorded. Procedures Surgical History Date Name Laterality Status Provider Name and Address Organization Details Recorded Time 09/03/20 24 Fiberoptic Laryngoscopy (Comprehensive) completed DINESH FRENCH MD 100 [facility] 100, [place], [address], [facility] 09/10/2024 06:26:10 Imaging Results None recorded. [...] Updated DateTime 09/03/2024 165.1 cm 35.8 kg/m2 25875.36 g Soha Hoffman [place] - [facility] 09/03/2024 11:28:44 Social History None recorded. Functional Status None recorded. Mental Status None recorded. Family History Nothing Reported. Medical History Condition Response Allergies/Hayfever Y Hypertension Y Gynecological HistoryNo gynecological history recorded. Obstetrics History GPAL:G 0 P 0 0 0 0 Past Encounters Encounter ID Performer Location Encounter Start Date Encounter Closed Date Diagnosis/Indication Diagnosis SNOMED-CT Code Diagnosis ICD10 Code Diagnosis Note [id number] DINESH FRENCH MD [facility] [address] [phone] 09/03/2024 11:08:58 09/03/2024 12:05:31 Chronic hoarseness 1903699603 105 R49.0 Gastroesop hageal reflux disease without esophagitis 718578771 K21.9 Obstructiv e sleep apnea syndrome 50646496 G47.33 Health Concerns Section Related Observation LastModified by Organization Detai ls LastModified Time None Recorded Concern Status LastModified by Organization Details LastModified Time None Recorded Advance Directives Directive None Recorded Payers Insurance Date Sequence Insurance Name Policy Number Policy Lal Covered Member ID Lal Member ID Guarantor Name 09/03/2024 1 [place] [employer] Agueda Leigh [id number] Agueda Leigh 09/03/2024 2 [place] [facility] Agueda E Eustis [id number] Agueda Leigh Notes Date Note Type Note [...] CPAP yet. Was ordered. DINESH FRENCH MD [address] [place] [address], [place], [address], [place] [facility] 09/10/2024 06:29:05 OBGyn Episode No OBEpisode recorded.
--- OUTSIDE RECORDS SUMMARY | 2025-03-14 14:00 | XMS_ITS | Clinical Summary ---
Author Organization [employer] Address [address] [place] [address] 7 [place] [address] Care Team Providers Care Online Merchandising Manager Name Role Phone Unavailable Primary Care Provider [...] Care Team (Late st Contact Info) Description 03/16/2025 11:00 AM EDT Office Visit [facility] DENTAL [address] [place] [address] Vito Solis Health Maintenance Due Date Last Done Comments [...] Vaccines (1 of 2) 2011 Pneumococcal Vaccine: 50+ Years (2 of 2 - PPSV23) 12/01/2020 10/06/2020 RSV Patients and Patients Aged 60 years or older (1 - Risk 60-74 years 1-dose series) 2021 Dental X-Ray: Bitewings 04/25/2023 04/24/20, 10/10/2016, 2015 COVID-19 Vaccine ( season) 2024 [...] patient's age to complete this topic Meningococcal B Vaccine Aged Out No l onger eligible based on patient's age to complete [...] ESTABLISHED PATIENT Routine 08/19/2024 12:00 PM EDT INTRAORAL - COMPLETE SERIES OF RADIOGRAPHIC IMAGES Routine 04/24/2022 12:00 AM EDT from Last 3 Months or Most Recently Relevant to Health Maintenance Insurance [facility] MEDICAID STAND ADULT
--- OUTSIDE RECORDS SUMMARY | 2025-03-14 14:00 | XMS_ITS | Encounter Summary ---
Author Organization [employer] Address [address] [facility] 7 [place] [address] Care Team Providers Care Wall Man Name Role Phone Unavailable Primary Care Provider [...] Description 03/16/2025 11:00 AM EDT Office Visit [place] [facility] DENTAL [address] [place] [address] Vito Solis documented as of this encounter Visit Diagnoses Not on filedocumented in this encounter
--- NOTE | 2025-03-14 14:09 | A.OFFPC_ITS ---
Vital Signs 03/14/25 14:14 Height 5 ft 3.5 in Weight 204 lb BMI 35.6 BP 108/74 Blood Pressure Location Lt brachial Position Sitting Respiration 16 Pulse 60 Pulse Source Pulse Oximeter Pulse Oximetry (%) 98 Oxygen Delivery Method Room Air Intake Visit Reasons: f/up meds, resched Intake Note: Medication follow up Allergies latex Allergy (Severe, Verified 11/23/24 11:56) Anaphylaxis cefadroxil [From Duricef] Allergy (Unknown, Verified 11/23/24 11:56) Rash Cephalosporins Allergy (Unknown, Verified 11/23/24 11:56) Unknown Penicillins Allergy (Unknown, Verified 11/23/24 11:56) Rash Tobacco use date assessed: 09/20/24 Dental Screening Dental Screen Date: 03/14/25 Did you have a dental visit in the last 12 months?: Yes Did you have a dental problem in the last 6 months where you did not have access to dental care?: No Was dental information given to patient?: Patient has dentist HPI HPI Comments History of Present Illness Details The patient is a 64 year old female with a past medical history of lupus, arthritis, neck pain, hypertension, hyperlipidemia presenting for follow up Chronic pain-SLE, OA, h/o scolioisis. On chronic morphine for pain management, valium as needed. Previously on plaquenil-intolerant of SE. Sees rheumatology Depression/anxiety-on prozac 20mg. history of IBS. continues loperamide. CV-on entresto, crestor. improving shortness of breath. Has had cardiac w/up, sees pulmonary. Saw Dr Wolf cardiology in December. echo with EF 35% Repeat echo is scheduled in March. Denies LE edema Colonoscopy 06/23/2019-Dr Arriaza-10 year repeat recommended Mammo -[facility]. Needs 6 months u/s s/p hysterectomy ROS see HPI PHYSICAL EXAM: GENERAL: Alert and oriented x 3. NAD EYES: EOMI. Anicteric. HENT: Moist mucous membranes. No scleral icterus. No cervical lymphadenopathy. LUNGS: scattered rhonci CARDIOVASCULAR: Regular rate and rhythm. No murmur. No JVD. ABDOMEN: Soft, non-tender +bs EXTREMITIES: No edema. Non-tender. SKIN: No rashes or lesions. Warm. NEUROLOGIC: No focal neurological deficits. CN II-XII grossly intact PSYCHIATRIC: Cooperative. Appropriate mood and affect [facility] Medical History Cataract Carpal tunnel syndrome on right Headache Depression Anxiety IBS (irritable bowel syndrome) Hypercholesteremia Sinusitis Asthma Surgical History History of tonsillectomy H/O tubal ligation History of hysterectomy Family History Mother HTN (hypertension) Hypercholesteremia Diabetes Clogged artery (heart) Breast cancer Father Hypercholesteremia Diabetes Clogged artery (heart) Prostate cancer Maternal Grandmother Diabetes Paternal Grandfather Lung cancer Stomach cancer Brother Clogged artery (heart) Social History Housing: House Patient Tobacco Use Status: Never used Tobacco e-Cigarette/Vaping Use: Never Used service: No Current occupational status: employed and retired Cognitive needs: No Hearing needs: No Vision needs: No Questionnaire Thrive Questionnaire Date Thrive assessed: 11/08/24 I am a: Patient What is your living situation today?: I have a steady place to live Within the past 12 months, did the food you bought not last and you didn't have the money to get more?: Never true Within the past 12 months, did you worry whether your food would run out before you got money to buy more?: Never true Do you have trouble paying for medicines?: No Do you have trouble getting transportation to medical appointments?: No Do you have trouble paying your heating and electricity bill?: No Do you have trouble taking care of your child, family member or friend?: No Do you have trouble with day-to-day activities such as bathing, preparing meals, shopping, managing finances, etc.?: No Are you currently unemployed and looking for a job?: No Are you interested in more education?: No Please select the resources that you would like help with: None Currently or been in a relationship where the following occur: No concerns reported THRIVE Score: 0 TORRIE-7 AMB Questionnaire TORRIE-7 Date TORRIE - 7 assessed: 03/10/24 Source: Developed by Drs. Noé Freeman, Ave Carson, Huang Leyva and colleagues, with an educational yin from [employer]. Physical exam (Primary Care) Vital Signs: Last Vital Signs Pulse 60 03/14/25 14:14 Resp 16 03/14/25 14:14 BP 108/74 03/14/25 14:14 Pulse Ox 98 03/14/25 14:14 Oxygen Delivery Method Room Air 03/14/25 14:14 BMI result Body Mass Index 35.6 Tobacco/Smoking Status: Tobacco use Status Tobacco use date assessed 09/20/24 03/14/25 14:17 Patient Tobacco Use Status Never used Tobacco 03/14/25 14:17 e-Cigarette/Vaping Use Never Used 03/14/25 14:17 Thrive Assessment: Date of Thrive Assessment Date Thrive assessed 11/08/24 03/14/25 14:17 Currently or been in a relationship where the following occur: No concerns reported Coding Level of Care Code Est Pt Level 4 (89799) Diagnoses Type 2 diabetes mellitus with diabetic polyneuropathy, unspecified 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 Diabetes mellitus type: type 2 Diabetes mellitus longterm insulin use: unspecified longterm insulin use status Diabetes mellitus complication status: with neurologic complications Diabetes mellitus complication detail: with polyneuropathy Primary hypertension I10 Hypertension type: primary hypertension Dyslipidemia E78.5 Chronic systolic congestive heart failure I50.22 Heart failure type: systolic Heart failure chronicity: chronic SLE (systemic lupus erythematosus related syndrome) M32.9 Assessment & Plan Assessment & Plan (1) Diabetes: Code(s): E11.9 - Type 2 diabetes mellitus without complications Category: Medical Qualifiers: Diabetes mellitus type: type 2 Diabetes mellitus local company intermodal truck driver insulin use: unspecified longterm insulin use status Diabetes mellitus complication status: with neurologic complications Diabetes mellitus complication detail: with polyneuropathy Qualified Code(s): E11.42 - Type 2 diabetes mellitus with diabetic polyneuropathy (2) Hypertension: Code(s): I10 - Essential (primary) hypertension Category: Medical Qualifiers: Hypertension type: primary hypertension Qualified Code(s): I10 - Essen tial (primary) hypertension (3) Dyslipidemia: Code(s): E78.5 - Hyperlipidemia, unspecified Category: Medical (4) CHF (congestive heart failure): Code(s): I50.9 - Heart failure, unspecified Category: Medical Qualifiers: Heart failure type: systolic Heart failure chronicity: chronic Qualified Code(s): I50.22 - Chronic systolic (congestive) heart failure (5) SLE (systemic lupus erythematosus related syndrome): Comment: continue f/up rheumatology. Having great difficulty weaning prednisone btw pain and breathing Code(s): M32.9 - Systemic lupus erythematosus, unspecified Category: Medical Plan 64 year old for follow up Improving breathing, more energy Echo next month with cardiology follow up Continues follow up with pulmonary Labs ordered Chronic pain is stable on current medication Orders: Orders Comprehensive Met. Panel Today E78.5 - Hyperlipidemia, unspecified, I10 - Essential (primary) hypertension, I50.22 - Chronic systolic (congestive) heart failure, R73.03 - Prediabetes Lipid Panel Today E78.5 - Hyperlipidemia, unspecified, I10 - Essential (primary) hypertension, I50.22 - Chronic systolic (congestive) heart failure, R73.03 - Prediabetes Complete Blood Count Auto Diff Today E78.5 - Hyperlipidemia, unspecified, I10 - Essential (primary) hypertension, I50.22 - Chronic systolic (congestive) heart failure, R73.03 - Prediabetes TSH reflex Free T4 Today E78.5 - Hyperlipidemia, unspecified, I10 - Essential (primary) hypertension, I50.22 - Chronic systolic (congestive) heart failure, R73.03 - Prediabetes Hemoglobin A1c Today E78.5 - Hyperlipidemia, unspecified, I10 - Essential (primary) hypertension, I50.22 - Chronic systolic (congestive) heart failure, R73.03 - Prediabetes Medications: New tirzepatide (Mounjaro) 5 mg (0.5 mL) subcut QWEEK 6 mL 1RF Refilled morphine 15 mg PO Q6H 28 days PRN 112 tabs 0RF pain
[2025-03-14 14:14] VITALS: BP 108/74; PULSE 60; RESP 16; O2SAT 98; BMI 35.6
== END 2025-03-14 14:43 | disposition home or self-care (01) ==
LOC: HO.HMCFM 13:57
PROVIDERS: PCP Internal Medicine; Visit Provider Internal Medicine
DX: E11.42 Type 2 diabetes mellitus with diabetic polyneuropathy (principal); I11.0 Hypertensive heart disease with heart failure; I50.22 Chronic systolic (congestive) heart failure; M32.9 Systemic lupus erythematosus, unspecified; E78.5 Hyperlipidemia, unspecified

== ENCOUNTER → 2025-03-14 13:56 | Outpatient (BNVA) | payer MEDICARE, MEDICAID, SELFPAY | PROVIDERS: PCP Internal Medicine; Visit Provider Internal Medicine | DX: Z13.89 Encounter for screening for other disorder (principal) | CPT/HCPCS: 99212 ==

== ENCOUNTER 2025-03-14 14:46 | Outpatient (REF) | payer MEDICARE, MEDICAID, SELFPAY ==
--- OUTSIDE RECORDS SUMMARY | 2025-03-14 14:51 | XMS_ITS | Clinical Summary ---
Author Organization [employer] Address [address] [place] [address] 7 [place] [address] Care Team Providers Care Check Examiner Name Role Phone Unavailable Primary Care Provider [...] Description 03/16/2025 11:00 AM EDT Office Visit [facility] DENTAL [address] [place] [address] Vito Solis Health Maintenance Due Date Last [...] Most Recently Relevant to Health Maintenance Insurance [facility] MEDICAID STAND ADULT
--- OUTSIDE RECORDS SUMMARY | 2025-03-14 14:51 | XMS_ITS | Encounter Summary ---
Author Organization [employer] Address [address] [facility] 7 [place] [address] Care Team Providers Care Depilatory Painter Name Role Phone Unavailable Primary Care Provider [...] Description 03/16/2025 11:00 AM EDT Office Visit [place] [facility] DENTAL [address] [place] [address] Vito Solis documented as of this encounter Visit Diagnoses Not on filedocumented in this encounter
[2025-03-14 17:27] LABS: MANUAL DIFF FLAG NO
[2025-03-14 17:31] LABS: Basophils Absolute Auto 0.1 X10*3/uL (0.0-0.2); Basophils Percent Auto 0.6 % (0-2); Eosinophils Absolute Auto 0.1 X10*3/uL (0.0-0.4); Eosinophils Percent Auto 0.8 % (0-4); Hematocrit 40.6 % (37.0-47.0); Hemoglobin 13.5 g/dl (12.0-16.0); Imm Gran Abs Auto 0.02 X10*3/uL (0.00-0.03); Imm Gran Pct Auto 0.2 % (0.0-0.4); Lymphocytes Absolute Auto 1.5 X10*3/uL (1.2-4.9); Lymphocytes Percent Auto 13.6 % (20-40); Mean Corpuscular HGB Conc 33.3 g/dl (31.0-35.0); Mean Corpuscular Hemoglobin 29.2 pg (27.0-33.0); Mean Corpuscular Volume 87.7 fL (80.0-98.0); Mean Platelet Volume 12.4 fL (9.4-12.3); Monocytes Absolute Auto 0.7 X10*3/uL (0.1-1.2); Monocytes Percent Auto 6.1 % (2-11); Neutrophils Absolute Auto 8.4 x10*3/uL (2.0-8.3); Neutrophils Percent Auto 78.7 % (45-73); Platelet Count 227 X10*3/uL (160-400); Red Blood Count 4.63 X10*6/uL (4.20-5.50); Red Cell Distribution Width 13.8 % (11.0-16.0); White Blood Count 10.7 X10*3/uL (4.8-10.8)
[2025-03-14 17:51] LABS: Alanine Aminotransferase 35 U/L (0-31); Albumin Level 4.5 g/dL (3.5-5.0); Alkaline Phosphatase 51 U/L (39-117); Anion Gap 13 (12-20); Aspartate Amino Transferase 39 U/L (5-31); Bilirubin Total 0.8 mg/dL (0.0-1.0); Blood Urea Nitrogen 12 mg/dL (9-16); Calcium 9.7 mg/dL (8.4-10.2); Carbon Dioxide 25 mmol/L (22-29); Chloride 109 mmol/L (96-108); Cholesterol 206 mg/dL (<200); Estimated Glomerular Filt Rate > 60; Glucose Random 111 mg/dL (60-115); HDL Cholesterol 49 mg/dL (>40); LDL Cholesterol Calculated 107 mg/dL (<100); Potassium 4.1 mmol/L (3.3-5.1); Sodium 143 mmol/L (135-145); Total Protein 7.1 g/dL (6.5-8.0); Triglycerides 250 mg/dL (<150)
[2025-03-14 18:09] LABS: TSH reflex Free T4 1.04 uIU/mL (0.32-4.0)
[2025-03-15 06:09] LABS: Estimated Average Glucose 114 mg/dL; Hemoglobin A1C 134.1936 umol/L; Hemoglobin A1c % 5.6 % (<6.0)
== END 2025-03-14 14:47 | disposition home or self-care (01) ==
LOC: HO.WFDLDS 14:46
PROVIDERS: Visit Provider Internal Medicine
DX: E11.42 Type 2 diabetes mellitus with diabetic polyneuropathy (principal); I11.0 Hypertensive heart disease with heart failure; I50.22 Chronic systolic (congestive) heart failure; E78.5 Hyperlipidemia, unspecified; M32.9 Systemic lupus erythematosus, unspecified; F32.A Depression, unspecified; F41.9 Anxiety disorder, unspecified; Z79.899 Other long term (current) drug therapy
CPT/HCPCS: 36415; 80053; 80061; 83036; 84443; 85025; 99212

== ENCOUNTER 2025-06-20 16:31 | Outpatient (AMB) | payer MEDICARE, MEDICAID, SELFPAY ==
--- NOTE | 2025-06-20 16:23 | A.OFFPC_ITS ---
Intake Visit Reasons: 3 month tele Intake Note: Three month follow up Flexible Babysitter Required: No Allergies latex Allergy (Severe, Verified 06/20/25 16:26) Anaphylaxis cefadroxil (From Duricef) Allergy (Unknown, Verified 06/20/25 16:26) Rash Cephalosporins Allergy (Unknown, Verified 06/20/25 16:26) Unknown Penicillins Allergy (Unknown, Verified 06/20/25 16:26) Rash Tobacco use date assessed: 09/20/24 Dental Screening Dental Screen Date: 03/14/25 HPI HPI Comments History of Present Illness Details The patient is a 64 year old female with a past medical history of lupus, arthritis, neck pain, hypertension, hyperlipidemia presenting for follow up Chronic pain-SLE, OA, h/o scolioisis. On chronic morphine for pain management, valium as needed. Previously on plaquenil-intolerant of SE. Sees rheumatology Depression/anxiety-on prozac 20mg. history of IBS. continues loperamide. CV-off entresto after recovered EF, restarted lisinopril, continues crestor. Improved shortness of breath. Asthma-follows with pulmonology-dr bermeo much improved symptoms after an entire year of not doing well. continues breo. Frequent cough. Was taking coricidin a few times a year then got worried because she watched a video linking with with the development of dementia. Colonoscopy 06/23/2019-Dr Arriaza-10 year repeat recommended Mammo -[facility]. UTD s/p hysterectomy ROS see HPI PHYSICAL EXAM: telehealth [facility] Medical History Cataract Carpal tunnel syndrome on right Headache Depression Anxiety IBS (irritable bowel syndrome) Hypercholesteremia Sinusitis Asthma Surgical History History of tonsillectomy H/O tubal ligation History of hysterectomy Family History Mother HTN (hypertension) Hypercholesteremia Diabetes Clogged artery (heart) Breast cancer Father Hypercholesteremia Diabetes Clogged artery (heart) Prostate cancer Maternal Grandmother Diabetes Paternal Grandfather Lung cancer Stomach cancer Brother Clogged artery (heart) Social History Housing: House Patient Tobacco Use Status: Never used Tobacco e-Cigarette/Vaping Use: Never Used service: No Current occupational status: employed and retired Cognitive needs: No Hearing needs: No Vision needs: No Questionnaire Thrive Questionnaire Date Thrive assessed: 11/08/24 TORRIE-7 AMB Questionnaire TORRIE-7 Date TORRIE - 7 assessed: 03/10/24 Source: Developed by Drs. Noé Freeman, Ave Carson, Huang Leyva and colleagues, with an educational yin from [employer]. Physical exam (Primary Care) Tobacco/Smoking Status: Tobacco use Status Tobacco use date assessed 09/20/24 06/20/25 16:26 Patient Tobacco Use Status Never used Tobacco 06/20/25 16:26 e-Cigarette/Vaping Use Never Used 06/20/25 16:26 Thrive Assessment: Date of Thrive Assessment Date Thrive assessed 11/08/24 06/20/25 16:26 Telehealth Telehealth Telehealth Platform: Telephone Location of provider rendering services: practice address Location of patient: address on file Patient Identification confirmed using: Name, : Yes Telehealth method: voice only Patient verbally consented to treatment: Yes Patient verbally consented to billing insurance company: Yes Patient informed of any privacy concerns related to visit: Yes Minutes spent on Phone/Video with Pt.: 35 Coding Level of Care Code Tele Est Pt Level 4 (33949) Diagnoses Chronic systolic congestive heart failure I50.22 Heart failure type: systolic Heart failure chronicity: chronic Prediabetes R73.03 SLE (systemic lupus erythematosus related syndrome) M32.9 Assessment & Plan Assessment & Plan (1) CHF (congestive heart failure): Code(s): I50.9 - Heart failure, unspecified Category: Medical Qualifiers: Heart failure type: systolic Heart failure chronicity: chronic Qualified Code(s): I50.22 - Chronic systolic (congestive) heart failure (2) Prediabetes: Code(s): R73.03 - Prediabetes Category: Medical (3) SLE (systemic lupus erythematosus related syndrome): Comment: continue f/up rheumatology. Having great difficulty weaning prednisone btw pain and breathing Code(s): M32.9 - Systemic lupus erythematosus, unspecified Category: Medical Plan 64 year old for follow up chronic pain is stable CHF with recovered EF Asthma is stable Medications: New loperamide 2 mg PO QID PRN 112 tabs 0RF loose stool Refilled morphine 15 mg PO Q6H PRN 112 tabs 0RF pain 28 days
--- OUTSIDE RECORDS SUMMARY | 2025-06-20 18:10 | XMS_ITS | Encounter Summary ---
Author Organization [employer] Address [address] [facility] 7 [place] [address] Care Team Providers Care Dye Jig Operator Name Role Phone Unavailable Primary Care [...] Care Team (Late st Contact Info) Description 09/21/2025 11:00 AM EST Office Visit [facility] DENTAL [address] [place] [address] Vito Solis documented as of this encounter Visit Diagnoses Not on filedocumented in this encounter
--- OUTSIDE RECORDS SUMMARY | 2025-06-20 18:11 | XMS_ITS | Clinical Summary ---
Author Organization [employer] Address 75 [facility] 7 [place] [address] Care Team Providers Care Pipe Wrapping Machine Operator Name Role Phone Unavailable Primary Care Provider Unavailabl e Allergies Active Allergy Reactions Criticality Noted Date Comments Cephalosporins 03/16/2025 Latex Anaphylaxis High 11/25/2022 Penicillins Rash Low 11/25/2022 Sulfa Antibiotics Rash Low 11/25/2022 Medications predniSONE (Deltasone) 5 MG tablet 08/01/2024 Active albuterol (Ventolin HFA) 108 (90 Base) MCG/ACT inhaler DIRECTED INHALE 2 PUFFS BY MOUTH EVERY 6 TO 8 HOURS FOR ASTHMA Active Entresto 24-26 MG tablet 02/18/2025 Active Rosuvastatin Calcium 5 MG capsule sprinkle Take 5 mg by mouth. 11/24/2023 Active Mounjaro 5 MG/0.5ML solution auto-injector 03/14/2025 Activ e Social History Tobacco Use Types Packs/Day Years [...] Description 09/21/2025 11:00 AM EST Office Visit [place] [facility] DENTAL [address] [place] [address] Vito Solis Health Maintenance Due Date Last Done Comments CT Colonography 1961 Colonoscopy 1961 Colorectal Cancer Screening 1961 Depression Screening 1961 FIT DNA/Cologuard 1961 FIT 1961 FOBT 1961 HIV Screening 1961 Lipid Panel 1961 SDOH Screening 1961 Sigmoidoscopy 1961 Disability Screening 1961 Alcohol/Substance Use Screening 1973 Hepatitis C Screening 1979 Pap Smear 1982 Cervical Cancer Screening 1991 HPV/Cotest 1991 Mammogram 2001 Zoster Vaccines (1 of 2) 2011 Pneumococcal Vaccine: 50+ Years (2 of 2 - PPSV23) 12/01/2020 10/06/2020 COVID-19 Vaccine ( season) 2024 09/20/2022, 01/08/2022, 02/27/2021, Additional history exists Dental X-Ray: Full Mouth 04/25/2025 04/24/2022, 07/27 Influenza Vaccine (#1) 2025 , 10/14/2023, 10/14/2023, Additional history exists Dental Oral Exam 09/17/2025 03/16/2025, , 11/25/2022, Additional history exists Dental Prophylaxis 09/17/2025 03/16/2025, 1 , 01/08/2024, Additional history exists Tobacco Screening 03/16/2026 03/16/2025 Dental X-Ray: Bitewings 03/17/2026 03/16/20, 04/24/2022, 10/10/2016, Additional history exists DTaP/Tdap/Td Vaccines (2 - Td or Tdap) 07/23/2031 07/23/2021 RSV Patients and Patients Aged 60 years or older Completed 07/16/2024, 11/05/2023 HIB Vaccines Aged Out No longer eligi [...] Diagnosis Comments Full PROPHYLAXIS - ADULT Routine 025 11:00 AM EDT BITEWINGS - 4 RADIOGRAPHIC IMAGES Routine 03/16/2025 11:00 AM EDT PERIODIC ORAL EVALUATION - ESTABLISHED PATIENT Routine 03/16/2025 11:00 AM EDT INTRAORAL - COMPLETE SERIES OF RADIOGRAPHIC IMAGES Routine 04/24/2022 12:00 AM EDT from Last 3 Months or Most Recently Relevant to Health Maintenance Insurance DENTAL-[facility] MEDICAID STAND ADULT
== END 2025-06-20 17:05 | disposition home or self-care (01) ==
LOC: HO.HMCFM 16:31
PROVIDERS: PCP Internal Medicine; Visit Provider Internal Medicine
DX: I50.22 Chronic systolic (congestive) heart failure (principal); R73.03 Prediabetes; M32.9 Systemic lupus erythematosus, unspecified